=== PATIENT | male | born 1955 | race Caucasian/White ===

== ENCOUNTER 2022-03-02 07:23 | Outpatient (CLI) | payer MEDICARE, OTHER, SELFPAY ==
--- NOTE | 2022-03-24 18:55 | WPDSLEEPSTUD ---
Sleep Study Date of Study: 03/02/22 Ordering Provider: Sheldon Soria APRN Interpreting Physician: Veda Kellogg DO Sleep Study Type: CPAP Titration Height: 1.93 m Weight: 95.254 kg Body Mass Index: 25.5 Neck Circumference (inches): 16.5 [place]: 16 Reason for Sleep Study Daytime hypersomnia, witnessed apneas Sleep History The patient is a 66 y/o with GERD, HTN, HLD, pre-diabetes, allergic rhinitis, spinal stenosis, anxiety, depression, PTSD and history of tobacco abuse that had a sleep study ordered by the pulmonary group for evaluation of sleep apnea. The patient occasionally awakens from sleep short of breath. He frequently awakens at night with heartburn, belching or cough. He frequently snores loud enough that others complain. He occasionally has trouble sleeping when he has a cold. He rarely wakes up gasping for air throughout the night. He frequently has breathing problems at night observed by himself or others. He rarely sweats excessively at night. He rarely has heart palpitations or irregular heartbeats during the night. He constantly falls asleep during the day but never while driving. He rarely experiences loss of muscle tone when extremely emotional. He denies having trouble at school or work due to sleepiness. He occasionally feels unable to move while waking up or falling asleep. He rarely experiences vivid dreamlike scenes upon awakening or falling asleep. He denies feeling afraid of going to sleep. He rarely has nightmares. He rarely remembers his dreams. He occasionally has thoughts racing through his mind. He rarely feels sad or depressed. He frequently has anxiety. He rarely has muscular tension. He rarely notices parts of his body jerk. He denies kicking during the night. He rarely has crawling and aching feelings in his legs but occasionally has leg pain during the night. He occasionally grinds his teeth during sleep but rarely awakens with morning jaw pain. He is frequently bothered by pain during the day and occasionally awakened by pain during the night. He occasionally wakes up feeling stiff in morning. He rarely wakes up with sore or achy muscles. He frequently wakes up with pain in the neck, spine and other joints. The patient goes to bed at 9:00 p.m. on weekdays and 9:30 p.m. on weekends. It takes him 10 minutes to fall asleep. He wakes up twice throughout the night to urinate. He can fall back asleep within 30 minutes most of the time. He wakes up at 5:00 a.m. on weekdays and 5:15 a.m. the weekends. He typically gets 5-1/2-6 hours of sleep per night. He will stay in bed for 45 minutes after waking up in the morning. He currently lives with his . He does not consume any caffeinated beverages within 2 hours of bedtime. He does not engage in physical exercise before bedtime. He will watch television before falling asleep. He will take naps in the afternoon or the evening but they are not refreshing. He drinks 3 cups of coffee per day. He drinks 4-5 alcoholic beverages per month. He quit smoking 27 years ago. The patient states that he does use recreational drugs but the specific drug is unspecified. [facility] Past Medical History Medical History Allergic rhinitis Fuchs' corneal dystrophy HLD (hyperlipidemia) HTN (hypertension) Osteoarthritis Pre-diabetes Spinal stenosis Vitamin D deficiency Surgical History Surgical History Carpal tunnel syndrome H/O knee surgery Hx of rotator cuff surgery Family History Family History Father Malignant neoplasm of prostate Lung cancer Brain cancer Mother Depression Bipolar 1 disorder Social History Social History Smoking packs per day: 1 Smoking cigarettes per day: 20.0 Years smoked:
[2022-03-24 18:57] VITALS: BMI 25.5
== END 2022-03-03 06:48 | disposition home or self-care (01) ==
PROVIDERS: Visit Provider Nurse Practitioner Family
DX: G47.33 Obstructive sleep apnea (adult) (pediatric) (principal)
CPT/HCPCS: 95811